=== PATIENT | female | born 1975 | race Caucasian/White ===

== ENCOUNTER 2017-09-06 05:41 | Day surgery (SDC) | payer BC ==
[~2017-09-06] VITALS: Ht 162.6 cm; Wt 64.4 kg
[~2017-09-06 05:41] MED LIST: BIRTH CONTROL PO; HYDROXYZINE HCL10 MG PO
[2017-09-06 06:28] VITALS: BP 118/76
[2017-09-06 09:51] VITALS: BP 99/74
[2017-09-06 10:51] VITALS: BP 125/75
== END 2017-09-06 11:10 | disposition home or self-care (01) ==
LOC: SDC 05:41
PROC: 0U574ZZ Destruction of Bilateral Fallopian Tubes, Percutaneous Endoscopic Approach (ICD-10-PCS; principal; 2017-09-06)
DX: Z30.2 Encounter for sterilization (principal)
CPT/HCPCS: J0330; J1100; J1170; J1885; J2250; J2405; J2710; J3010; J7643; S0020